=== PATIENT | female | born 1955 | race Caucasian/White ===

== ENCOUNTER → 2017-07-21 | Outpatient (CLI) | payer OTHER | LOC: BMCIMAGING 09:37 | PROVIDERS: ATTEND Internal Medicine | DX: M25.562 Pain in left knee (principal); R60.0 Localized edema; M79.89 Other specified soft tissue disorders ==

== ENCOUNTER → 2019-03-01 | Outpatient (CLI) | payer OTHER | LOC: FIMAGING 09:50 ==